=== PATIENT | female | born 1990 | race Two or more races ===

== ENCOUNTER 2024-09-29 15:40 | Emergency (ER) | payer MEDICAID, OTHER ==
[~2024-09-29] VITALS: Ht 157.5 cm; Wt 61.4 kg
--- NOTE | 2024-09-29 15:48 | ED.PDOC ---
HPI Comments 34 y.o female presents to the ED for a chief complaint of substernal chest pain radiating to her back and neck that started earlier today at rest. Patient is currently gestation with BUREAU CHIEF history of . Patient reports pain is intermittent, no active pain at this time but when presented, was described as a squeezing sensation. Patient denies any fever, chills, nausea, vomiting or SOB. Patient mentions 2 day history of a sore throat and sinuses d/t recent sick contact (daughter) at home. Patient has no other medical history. Chief Complaint: Chest Pain Time Seen by MD: 15:41 Reviewed Notes: Nurses Notes, Medications, Allergies Allergies: Coded Allergies: NO KNOWN ALLERGIES (Unverified , 09/29/24) Information Source: Patient Mode of Arrival: Ambulatory Severity: Moderate Timing: Hours Duration: Since onset Location: Substernal Radiation: Back, Neck Quality: Squeezing Onset: At Rest Cardiac Risk Factors: None PE Risk Factors: None History of: None Associated Signs and Symptoms: Back Pain Past Medical History PAST MEDICAL HISTORY: Denies Surgical History: Tonsillectomy 2 Para 1 Family History Family History: Family hx of HTN Social History Smoker: Non-Smoker Alcohol: Denies ETOH Use Drugs: Denies Drug Use Lives In: Home Constitutional: denies: chills, diaphoresis, fatigue, fever, malaise, sweats, weakness, others EENTM: denies: blurred vision, double vision, ear bleeding, ear discharge, ear drainage, ear pain, ear ringing, eye pain, eye redness, hearing loss, mouth pain, mouth swelling, nasal discharge, nose bleeding, nose congestion, nose pain, photophobia, tearing, throat pain, throat swelling, voice changes, others Respiratory: denies: cough, hemoptysis, orthopnea, SOB at rest, shortness of breath, SOB with excertion, stridor, wheezing, others Cardiovascular: reports: chest pain; denies: dizzy spells, diaphoresis, Dyspnea on exertion, edema, irregular heart beat, left arm pain, lightheadedness, palpitations, PND, syncope, others Gastrointestinal: denies: abdomen distended, abdominal pain, blood streaked bowels, constipated, diarrhea, dysphagia, difficulty swallowing, hematemesis, melena, nausea, poor appetite, poor fluid intake, rectal bleeding, rectal pain, vomiting, others Genitourinary: denies: abnormal vagina bleeding, burning, dyspareunia, dysuria, flank pain, frequency, hematuria, incontinence, pain, , vagina discharge, urgency, others Neurological: denies: dizziness, fainting, headache, left sided numbness, left sided weakness, numbness, paresthesia, pre-existing deficit, right sided numbness, right sided weakness, seizure, speech problems, tingling, tremors, weakness, others Musculoskeletal: reports: back pain, neck pain; denies: gout, joint pain, joint swelling, muscle pain, muscle stiffness, others Integumetry: denies: bruises, change in color, change in hair/nails, dryness, laceration, lesions, lumps, rash, wounds, others Allergic/Immunocompromised: denies: Difficulty Healing, Frequent Infections, Hives, Itching, others Hematologic/Lymphatic: denies: anemia, blood clots, easy bleeding, easy bruising, swollen glands, others Endocrine: denies: excessive hunger, excessive sweating, excessive thirst, excessive urination, flushing, intolerance to cold, intolerance to heat, unexplained weight gain, unexplained weight loss, others Psychiatric: denies: anxiety, bipolar disorder, depression, hopeless, panic disorder, schizophrenia, sleepless, suicidal, others All Other Systems: Reviewed and Negative Physical Exam General Appearance: No Apparent Distress HEENT: Normal ENT Inspection, Pharynx Normal, TMs Normal Neck: Full Range of Motion, Non-Tender, Normal, Normal Inspection Respiratory: Chest Non-Tender, Lungs Clear, No Accessory Muscle Use, No Respiratory Distress, Normal Breath Sounds Cardiovascular: No Edema, No JVD, No Murmur, No Gallop, Tachycardia Breast Exam: Deferred Gastrointestinal: No Organomegaly, Non Tender, No Pulsatile Mass, Normal Bowel Sounds, Soft Genitalia: Deferred Pelvic: Deferred Rectal: Deferred Extremities: No calf tenderness, Normal capillary refill, Normal inspection, Normal range of motion, Non-tender, No pedal edema Musculoskeletal : Apperance: Normal Neurologic: Alert, pain medicine physician II-XII nml as Tested, No Motor Deficits, Normal Affect, Normal Mood, No Sensory Deficits Cerebellar Function: Normal Reflexes: Normal Skin: Dry, Normal Color, Warm Lymphatic: No Adenopathy EKG EKG : Pulse Rate (adult): 120 [place]: Normal Cardiac Rhythm: ST Block: None ST: Nonsp Was a procedure done? Was a procedure done?: No CP Differential Dx Differential Diagnosis: Angina Differential Diagnosis: Angina, Chest Wall Pain, Cholelithiasis, Costochondritis, Esophageal reflux/spasm, Gastritis, Pericarditis X-Ray, Labs, Meds, VS Vital Signs Date Time Temp Pulse Resp B/P (MAP) Pulse Ox O2 Delivery O2 Flow Rate FiO2 09/29/24 16:29 125 09/29/24 15:45 102 09/29/24 15:45 99.7 109/75 (86) 98 99.7 Lab Test 09/29/24 15:50 Range/Units White Blood Count 8.9 4.4-10.8 10^3/uL Red Blood Count 4.43 4.0-5.20 10^6/uL Hemoglobin 13.6 12.2-16.2 g/dL Hematocrit 40.4 36.0-46.0 % Mean Corpuscular Volume 91.2 80.0-100.0 fL Mean Corpuscular Hemoglobin 30.6 28.0-32.0 pg Mean Corpuscular Hemoglobin Concent 33.6 32.0-36.0 g/dL Red Cell Distribution Width 13.1 11.8-14.3 % Platelet Count 163 140-450 10^3/uL Mean Platelet Volume 9.1 6.9-10.8 fL Neutrophils (%) (Auto) 73.4 37.0-80.0 % Lymphocytes (%) (Auto) 18.3 10.0-50.0 % Monocytes (%) (Auto) 6.3 0.0-12.0 % Eosinophils (%) (Auto) 1.5 0.0-7.0 % Basophils (%) (Auto) 0.5 0.0-2.0 % Neutrophils # (Auto) 6.5 1.6-8.6 10 ^3/uL Lymphocytes # (Auto) 1.6 0.4-5.4 10 ^3/uL Monocytes # (Auto) 0.6 0-1.3 10 ^3/uL Eosinophils # (Auto) 0.1 0-0.8 10 ^3/uL Basophils # (Auto) 0 0-0.2 10 ^3/uL Nucleated Red Blood Cells 0.0 % Sodium Level Pending Potassium Level Pending Chloride Level Pending Carbon Dioxide Level Pending Anion Gap Pending Blood Urea Nitrogen Pending Creatinine Pending Glomerular Filtration Rate Calc Pending BUN/Creatinine Ratio Pending Serum Glucose Pending Calcium Level Pending Troponin I High Sensitivity Pending The patient's CBC is within normal limits The patient is afebrile We are sending the patient to labor and delivery for further ultrasound to evaluate the baby. At this time, the patient was being discharged and will follow up with the primary care doctor The patient has been cleared from the emergency department's Time of 1ST Reevaluation: 15:48 Reevaluation 1ST: Unchanged Patient Education/Counseling: Diagnosis, Treatment, Prognosis, Need For Follow Up Family Education/Counseling: Diagnosis, Treatment, Prognosis, Need For Follow Up Departure 1 Departure Time of Disposition: 18:21 Impression: Primary Impression: Non-cardiac chest pain Additional Impression: Qualified Codes: Z34.90 - Encounter for supervision of normal , unspecified, unspecified trimester Disposition: 01 HOME / SELF CARE / HOMELESS Condition: Fair Discharged With: Self Critical Care Note Critical Care Time?: No Stability Stability form required: No Heart Score Heart Score: Heart Score Response (Comments) Value History Slightly Suspicious 0 EKG Normal 0 Age <45 0 Risk Factors No known risk factors 0 Troponin N/A 0 Total 0 I personally scribed for FAUZIA SHAH MD ([email or web address]) on 09/29/24 at 15:48. Electronically submitted by Haily Durand ([facility]). FAUZIA SHAH MD Sep 29, 2024 15:48
[2024-09-29 17:43] LABS: Basophils # (auto) 0 10 ^3/uL (0-0.2); Basophils % (auto) 0.5 % (0.0-2.0); Eosinophils # (auto) 0.1 10 ^3/uL (0-0.8); Eosinophils % (auto) 1.5 % (0.0-7.0); Hematocrit 40.4 % (36.0-46.0); Hemoglobin 13.6 g/dL (12.2-16.2); Lymphocytes # (auto) 1.6 10 ^3/uL (0.4-5.4); Lymphocytes % (auto) 18.3 % (10.0-50.0); Mean Corpuscular Hemoglobin 30.6 pg (28.0-32.0); Mean Corpuscular Hgb Conc. 33.6 g/dL (32.0-36.0); Mean Corpuscular Volume 91.2 fL (80.0-100.0); Monocytes # (auto) 0.6 10 ^3/uL (0-1.3); Monocytes % (auto) 6.3 % (0.0-12.0); Neutrophils # (auto) 6.5 10 ^3/uL (1.6-8.6); Neutrophils % (auto) 73.4 % (37.0-80.0); Platelet Count (auto) 163 10^3/uL (140-450); Red Blood Cells 4.43 10^6/uL (4.0-5.20); Red Cell Distribution Width 13.1 % (11.8-14.3); White Blood Cell 8.9 10^3/uL (4.4-10.8)
[2024-09-29 18:06] LABS: Chloride 105 mmol/L (98-107); Sodium 136 mmol/L (136-145)
[2024-09-29 18:07] LABS: Anion Gap 7 (5-15); Calcium 9.6 mg/dL (8.7-10.4); Carbon Dioxide 24 mmol/L (20-31)
[2024-09-29 18:12] LABS: BUN/Creatinine Ratio 15.6 (10.0-20.0); Blood Urea Nitrogen 10 mg/dL (9-23)
[2024-09-29 18:30] VITALS: BP 104/75; PULSE 97; RESP 16; TEMP 99.6; O2SAT 98
[2024-09-29 18:34] LABS: Glucose 110 mg/dL (74-106)
--- NOTE | 2024-10-01 10:38 | ECG ---
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
--- NOTE | 2024-10-01 13:22 | ECG ---
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
== END 2024-09-29 18:30 | disposition home or self-care (01) ==
LOC: ER 15:40
DX: O26.891 Other specified pregnancy related conditions, first trimester (principal); R07.89 Other chest pain; Z90.89 Acquired absence of other organs; Z3A.00 Weeks of gestation of pregnancy not specified
CPT/HCPCS: 36415; 80048; 84484; 85025; 93005

== ENCOUNTER 2024-10-11 10:59 | Observation (INO) | payer MEDICAID ==
[~2024-10-11] VITALS: Ht 157.5 cm; Wt 62.1 kg
--- NOTE | 2024-10-11 12:36 | DVH ---
Procedure: US BIOPHYSICAL PROFILE 10/11/2024 11:23 AM Indication: Low ANDER Comparison: None Technique: Sonogram of gravid uterus utilizing grayscale and color techniques. FINDINGS: Single living intrauterine gestation. Presentation: Cephalic Placenta: Anterior heart rate: 156 bpm ANDER: 7.6 cm, DVP: 3.5 cm Maternal cervix: Not visualized Biophysical Profile: breathing score: 2 movement score: 2 tone: 2 Quantitative ANDER score: 2 Total score: 8/8 IMPRESSION: 1. Single living as above. 2. Biophysical profile score: 8/8.
--- NOTE | 2024-10-12 07:10 | DVHDS2 ---
Physician Discharge Progress N Final Diagnosis: iup at 38 wks w/borderline eva Operations or Procedures: Operations or Procedures nst 38wks,sono Other Interventions Other Interventions refuses induction Condition on Discharge: Good Disposition: Home Discharge Instructions: Diet: Regular Activity: No Restrictions, As Tolerated Medications: na Follow Up Care: Specialist: 2d Discharge Statement: "Patient was advised to return to the ER or call 911 if any headaches, diz ziness, shortness of breath, chest pain, abdominal pain, bleeding, fevers, or worsening of medical condition. Patient was counseled about treatment plan, medications, possible side effects, patientverbalized understanding. All questions were answered to the best of my ability. This discharge took greater then 30 minutes in planning, reviewing documentation, counseling the patient, and discussing with other team members." Visit Coding OBGYN Date of Service: Oct 11, 2024 Billing Provider: LUIS MERCHANT DO HEAD MILLER Common Visit Codes: [id number] INP/OBS CARE(HIGH) HEAD MILLER Procedure Codes: 14440-57- NON-STRESS TEST LUIS MERCHANT DO Oct 12, 2024 07:10
== END 2024-10-11 12:36 | disposition home or self-care (01) ==
LOC: LDRP 10:59
PROVIDERS: ADMIT Obstetrics & Gynecology; ATTEND Obstetrics & Gynecology
DX: O41.93X0 Disorder of amniotic fluid and membranes, unspecified, third trimester, not applicable or unspecified (principal); Z3A.38 38 weeks gestation of pregnancy; Z88.0 Allergy status to penicillin; Z79.899 Other long term (current) drug therapy
CPT/HCPCS: 59025; 76819; 81002; 94760; G0378

== ENCOUNTER 2024-10-13 16:04 | Observation (INO) | payer MEDICAID ==
--- NOTE | 2024-10-13 17:16 | DVH ---
BIOPHYSICAL PROFILE HISTORY: low ANDER Comparison Study: None available at time of dictation. TECHNIQUE: Multiple real-time grayscale sonographic images through the gravid uterus of the fetus wi th duplex Doppler color flow and M-mode spectral analysis FINDINGS: Fetus is in cephalic position. Internal os is shadowed by the head of the fetus. Heart rate is 130 beats per minute. Placenta is anterior with no evidence for placenta previa. Amniotic fluid index is 6.65 cm with the deepest pocket = 3.45 cm. There is a 3-vessel cord. breathing = 2/2. movements = 2/2. tone = 2/2. Amniotic fluid = 2/2. IMPRESSION: 1. Single viable intrauterine in cephalic position with normal biophysical profile of 8/8. Amniotic fluid is low normal for late 3rd trimester
[2024-10-13] MEDS ORDERED: PREN1TAB71 OR (17:55)
--- NOTE | 2024-10-14 14:37 | DVHDS2 ---
Physician Discharge Progress N Final Diagnosis: low eva 38wks Operations or Procedures: Operations or Procedures nst pt refuses induction Condition on Discharge: Good Disposition: Home Discharge Instructions: Diet: Regular Activity: No Restrictions, As Tolerated Medications: na Follow Up Care: Specialist: 1d Discharge Statement: "Patient was advised to return to the ER or call 911 if any headaches, dizziness, shortness of breath, chest pain, abdominal pain, bleeding, fevers, or worsening of medical condition. Patient was counseled about treatment plan, medications, possible side effects, patientverbalized understanding. All questions were answered to the best of my ability. This discharge took greater then 30 minutes in planning, reviewing docume ntation, counseling the patient, and discussing with other team members." Visit Coding OBGYN Date of Service: Oct 13, 2024 Billing Provider: LUIS MERCHANT DO LABORER/GRADE CHECK Common Visit Codes: 93981-[id number] INP/OBS CARE(HIGH) LABORER/GRADE CHECK Procedure Codes: 65548-81- NON-STRESS TEST LUIS MERCHANT DO Oct 14, 2024 14:37
== END 2024-10-13 18:10 | disposition home or self-care (01) ==
LOC: LDRP 16:04 → UNDODISOB 16:46
PROVIDERS: ADMIT Obstetrics & Gynecology; ATTEND Obstetrics & Gynecology
DX: O42.913 Preterm premature rupture of membranes, unspecified as to length of time between rupture and onset of labor, third trimester (principal); Z98.890 Other specified postprocedural states; Z79.899 Other long term (current) drug therapy; Z3A.38 38 weeks gestation of pregnancy
CPT/HCPCS: 76819; 81002; G0378

== ENCOUNTER 2024-10-14 21:49 | Inpatient (IN) | payer MEDICAID ==
[~2024-10-14] VITALS: Ht 157.5 cm; Wt 62.6 kg
[~2024-10-14 21:49] MED LIST: PREN1TAB71 OR
[2024-10-14] MEDS ORDERED: RHO (D) IMMUNE GLOBULIN 300 MCG INJ IM ONE (22:15)
[2024-10-14] MEDS ORDERED: NALBUPHINE HCL 10 MG/1ml INJECTION IV PRN (22:15)
[2024-10-14] MEDS ORDERED: LACT. RINGERS/OXYTOCIN 20UNITS 500 ML IV ONE (22:15)
[2024-10-14] MEDS ORDERED: LIDOCAINE 2%HCL (LOCAL ANESTH.) INJ 20ML MDV IJ PRN (22:15)
[2024-10-14] MEDS ORDERED: miSOPROStol 50 MCG per PRE-CUT 1/2 TAB PO PRN (22:15)
[2024-10-14 22:48] LABS: Basophils # (auto) 0 10 ^3/uL (0-0.2); Basophils % (auto) 0.6 % (0.0-2.0); Eosinophils # (auto) 0.2 10 ^3/uL (0-0.8); Eosinophils % (auto) 2.1 % (0.0-7.0); Hematocrit 39.9 % (36.0-46.0); Hemoglobin 13.5 g/dL (12.2-16.2); Lymphocytes # (auto) 2.2 10 ^3/uL (0.4-5.4); Lymphocytes % (auto) 28.4 % (10.0-50.0); Mean Corpuscular Hgb Conc. 33.7 g/dL (32.0-36.0); Mean Corpuscular Volume 91.9 fL (80.0-100.0); Monocytes # (auto) 0.4 10 ^3/uL (0-1.3); Monocytes % (auto) 5.7 % (0.0-12.0); Neutrophils # (auto) 4.8 10 ^3/uL (1.6-8.6); Neutrophils % (auto) 63.2 % (37.0-80.0); Nucleated Red Blood Cells % 0.1 %; Platelet Count (auto) 179 10^3/uL (140-450); Red Blood Cells 4.34 10^6/uL (4.0-5.20); Red Cell Distribution Width 13.4 % (11.8-14.3); White Blood Cell 7.7 10^3/uL (4.4-10.8)
[2024-10-14 22:59] LABS: INR 0.92 (0.9-1.15); Partial Thromboplastin Time 26.7 SEC (24.5-34.5); Prothrombin Time 9.8 sec (9.3-11.8)
[2024-10-14 23:06] LABS: Amphetamine Screen, Urine Neg (NEGATIVE); Barbiturate Scree,Urine Neg (NEGATIVE); Benzodiazephine Screen, Urine Neg (NEGATIVE); Cannabinoid Screen, Urine Neg (NEGATIVE); Cocaine Screen, Urine Neg (NEGATIVE); Opiate Scree,Urine Neg (NEGATIVE); Phencyclidine Screen, Urine Neg (NEGATIVE)
[2024-10-14 23:07] LABS: Urine Bacteria FEW /hpf (None Seen); Urine Blood Negative /uL (Negative); Urine Clarity Clear (Clear); Urine Color Light-Yellow (Yellow); Urine Protein, UAD Negative (Negative); Urine Specific Gravity 1.013 (1.001-1.035); Urine Squamous Epithelial Cell FEW /hpf (<5); Urine Urobilinogen Normal (Negative); Urine WBC 1 /HPF (0-5); Urine pH 6.5 (5.0-9.0)
[2024-10-14 23:09] LABS: Alanine Aminotransferase 28 U/L (7-40); Albumin 4.1 g/dL (3.2-4.8); Anion Gap 6 (5-15); Aspartate Aminotransferase 36 U/L (13-40); BUN/Creatinine Ratio 11.1 (10.0-20.0); Bilirubin, Total 0.4 mg/dL (0.2-1.0); Calcium 9.3 mg/dL (8.7-10.4); Carbon Dioxide 26 mmol/L (20-31); Glucose 89 mg/dL (74-106); Potassium 3.7 mmol/L (3.5-5.1); Sodium 140 mmol/L (136-145); Total Protein 6.2 g/dL (5.7-8.2)
[2024-10-14 23:15] LABS: Chloride 108 mmol/L (98-107)
[2024-10-14 23:16] LABS: Alkaline Phosphatase 168 U/L (46-116); Blood Urea Nitrogen 7 mg/dL (9-23)
[2024-10-14] MEDS: LACTATED RINGER'S 1,000 ML IV SCH (23:54)
--- NOTE | 2024-10-14 23:54 | DVHHP2 ---
OB CC & HPI Date Date of Admission: Oct 14, 2024 Patient Identification: : 2 Para: 1 EDC: Oct 21, 2024 EGA: 39.0wks Chief Complaints: Reason for admission: induction of labor Indication for induction: other (Low ANDER) Admission Nurse Assessment Rev: Yes History of Present Complaints 34yo IUP@39.0wks presents for IOL for Low ANDER (6.65cm) per Dr. Montes on 10/13/24 Denies UCs/LOF/VB/[place]/vision changes/RUQ pain. Endorses +FM. PNC: Routine PNC at [facility] OB, adequate visits. GTT wnl, dating based on LMP c/w 9wk sono, GBS negative. OB hx: #1: , uncomplicated in 2008. #2: current Past Medical History Cardiac: No pertinent Hx Pulmonary: No pertinent Hx Central Nervous System: No pertinent Hx GI: No pertinent Hx Hemotology/Oncology: No pertinent Hx Hepatobiliary: No pertinent Hx Psychiatric: No pertinent Hx Musculoskeletal: No pertinent Hx Rheumotologic: No pertinent Hx Infectious Disease: No peritnent Hx ENT: No pertinent Hx Renal/: No pertinent Hx Endocrine: No pertinent Hx Dermatology: No pertinent Hx Past Surgical History: Tonsillectomy (2004), Other (Breat Augmentation in 2007) OB History OB History Care: Good Care Ultrasounds: Normal mid trimester US Obstetrical Complications: Other (Low ANDER) Medical Complications: None Allergies: Coded Allergies: Amoxicillin (Verified Allergy, Intermediate, Hives, 10/14/24) Cefdinir (Verified Allergy, Intermediate, Hives, 10/14/24) Sodium Benzoate (Verified Allergy, Intermediate, Hives, 10/14/24) Home Meds Reported Medications Vit W/ Ferrous Fumara (PNV PLUS MULTIVI) Plus Tab, 1 OR, TAB 10/13/24 Current Medications Current Medications Medications (Trade) Dose Ordered Sig/Amparo Route PRN Reason Start Time Stop Time Status Last Admin Lactated Ringer's 1,000 ml @ 125 mls/hr Q8H IV 10/14/24 22:15 Nalbuphine HCl (Nubain) 10 mg Q4HP PRN IV MODERATE PAIN (4-6 PAIN SCALE) 10/14/24 22:15 Witch Marychuy (Tucks) 1 pad PRN PRN TOP PERINEAL AREA DISCOMFORT 10/14/24 22:15 Sodium Lauryl Sulfate (Phisoderm) 240 ml PRN PRN TOP PERINEAL AREA DISCOMFORT 10/14/24 22:15 Benzocaine (Dermoplast) 1 applic PRN PRN TOP PERINEAL AREA DISCOMFORT 10/14/24 22:15 Misoprostol (Cytotec) 50 mcg Q4HPRN PRN PO CERVICAL RIPENING 10/14/24 22:15 Lidocaine HCl (Xylocaine) 20 ml ONCE PRN IJ PERINEAL AREA DISCOMFORT 10/14/24 22:15 Family & Social History Family/Social History Past Family/Social History: Maternal Grandfather prostate cancer Blood Type: O- (Rhogam given on 08/06/24) Rubella: immune RPR/VDRL: Negative GBS Status: Negative HBsAG: Negative Review of Systems Constitutional: No symptom reported Ears, Nose, & Throat: No symptom reported Eyes: No symptom reported Pulmonary/Respiratory: No symptom reported Cardiovascular: No symptom reported Gastrointestinal: No symptom reported Genitourinary: No symptom reported Musculoskeletal: No symptom reported Skin: No symptom reported Psychiatric: No symptom reported Endocrine: No symptom reported Hemotologic/Lymphatic: No symptom reported OB Admission Exam Physical Exam Vitals: VSS, see chart EFW 7lbs 4oz, vertex at Dr. Vásquez's office on 10/09/24 HEENT: TMs Normal, Fontanelles Normal, Nasal Mucosa Normal, Eyes non-injected, Oropharynx Normal, PERRLA, Moist Membranes, EOMI Heart: Rhythm Normal Lungs: Clear Abdomen: Gravid Extremities: Normal Reflexes: Normal Cervical Dilatation: 1cm Effacement: 50% Station: -3 Membranes: Intact Accelerations: Accelerations Present (FHR 165) Decelerations: Variable Decelerations Morgue Attendant Variability: Average (6-25) Contractions on Admission: None OB Plan Plan Admitting Diagnosis: 34yo IUP@39.0wks Induction of Labor for Low ANDER (6.65cm) per Dr. Montes Category II EFM Intact Membranes GBS negative Plan: Induction (cervical ripening balloon) Other Plan: Admit to L&D Informed consent obtained IV fluid bolus given for tachycardia Discussed risks, benefits, alternatives of IOL for Low ANDER with pt. Discussed cervical ripening balloon and cytotec, pt consents to CRB and declines cytotec. monitoring per order Routine labs ordered Pain mgmt PRN Frequent position changes in and out of bed encouraged Limit SVE unless necessary Intrauterine resuscitation PRN Anticipate CNM will consult with Dr. Montes PRN Visit Coding OBGYN Date of Service: Oct 14, 2024 Billing Provider: TERE BAXTER CNM OCCUPATIONAL HEALTH AND SAFETY ADVISER Common Visit Codes: [id number] INP/OBS CARE (HIGH) JARON MEDEIROS STUDENTMDW Oct 14, 2024 23:54
[2024-10-15] MEDS: WITCH HAZEL-GLYCERIN PAD TOP PRN (04:35)
[2024-10-15] MEDS: DERMOPLAST 60ML BOTTLE TOP PRN (04:35)
[2024-10-15] MEDS: PHISODERM TOP SOLN 240ML BTL TOP PRN (04:35)
--- NOTE | 2024-10-15 07:59 | DVHPN2 ---
Chief Complaints Patient reports: No new complaints Nursing reports: No new complaints Objective Medications Current Medications Medications (Trade) Dose Ordered Sig/Amparo Route PRN Reason Start Time Stop Time Status Last Admin Benzocaine (Dermoplast) 1 applic PRN PRN TOP PERINEAL AREA DISCOMFORT 10/14/24 22:15 10/15/24 04:35 Lactated Ringer's 1,000 ml @ 125 mls/hr Q8H IV 10/14/24 22:15 10/14/24 23:54 Lidocaine HCl (Xylocaine) 20 ml ONCE PRN IJ PERINEAL AREA DISCOMFORT 10/14/24 22:15 Misoprostol (Cytotec) 50 mcg Q4HPRN PRN PO CERVICAL RIPENING 10/14/24 22:15 Nalbuphine HCl (Nubain) 10 mg Q4HP PRN IV MODERATE PAIN (4-6 PAIN SCALE) 10/14/24 22:15 Sodium Lauryl Sulfate (Phisoderm) 240 ml PRN PRN TOP PERINEAL AREA DISCOMFORT 10/14/24 22:15 10/15/24 04:35 Witch Marychuy (Tucks) 1 pad PRN PRN TOP PERINEAL AREA DISCOMFORT 10/14/24 22:15 10/15/24 04:35 Others ve-cooks ballon in Studies Laboratory Tests 10/14/24 22:30 Test 10/14/24 22:30 Range/Units Serum Glucose 89 74-106 mg/dL Ass/Plan Assessment iol ,ama Plan pt is refusing pitocin and wants to cont with all natural Visit Coding OBGYN Date of Service: Oct 15, 2024 Billing Provider: LUIS MERCHANT DO LATEX SPOOLER Common Visit Codes: [id number] INP/OBS CARE (HIGH) LATEX SPOOLER Procedure Codes: 40911-14- NON-STRESS TEST LUIS MERCHANT DO Oct 15, 2024 07:59
--- NOTE | 2024-10-15 08:42 | DVHPN2 ---
Chief Complaints Patient reports: No new complaints Nursing reports: No new complaints Objective Medications Current Medications Medications (Trade) Dose Ordered Sig/Amparo Route PRN Reason Start Time Stop Time Status Last Admin Benzocaine (Dermoplast) 1 applic PRN PRN TOP PERINEAL AREA DISCOMFORT 10/14/24 22:15 10/15/24 04:35 Lactated Ringer's 1,000 ml @ 125 mls/hr Q8H IV 10/14/24 22:15 10/14/24 23:54 Lidocaine HCl (Xylocaine) 20 ml ONCE PRN IJ PERINEAL AREA DISCOMFORT 10/14/24 22:15 Misoprostol (Cytotec) 50 mcg Q4HPRN PRN PO CERVICAL RIPENING 10/14/24 22:15 Nalbuphine HCl (Nubain) 10 mg Q4HP PRN IV MODERATE PAIN (4-6 PAIN SCALE) 10/14/24 22:15 Sodium Lauryl Sulfate (Phisoderm) 240 ml PRN PRN TOP PERINEAL AREA DISCOMFORT 10/14/24 22:15 10/15/24 04:35 Witch Marychuy (Tucks) 1 pad PRN PRN TOP PERINEAL AREA DISCOMFORT 10/14/24 22:15 10/15/24 04:35 Others cooks baloon out cx is 4cm Studies Laboratory Tests 10/14/24 22:30 Test 10/14/24 22:30 Range/Units Serum Glucose 89 74-106 mg/dL Ass/Plan Assessment iol ,ama Plan pt refuses pitocin Visit Coding OBGYN Date of Service: Oct 15, 2024 Billing Provider: LUIS MERCHANT DO MARBLE MECHANIC HELPER Common Visit Codes: [id number] INP/OBS CARE (HIGH) MARBLE MECHANIC HELPER Procedure Codes: 35975-51- NON-STRESS TEST LUIS MERCHANT DO Oct 15, 2024 08:42
[2024-10-15] MEDS ORDERED: LACT. RINGERS/OXYTOCIN 20UNITS 500 ML IV ONE (15:45)
--- NOTE | 2024-10-15 15:55 | DVHPN2 ---
CNM Labor Progress Note Date and Time Seen Date Seen: Oct 15, 2024 Time Seen: 15:10 Subjective Patient reports: No new complaints Subjective Comment "I feel more pressure than anything but no pain." Pt wants to start pitocin after epidural placement. Objective Vital Signs VSS, see chart Monitoring Method Monitoring Method: External Heart Rate Heart Rate Baseline: 150 Heart Rate Variability: Moderate Presence of FHR Accelerations: Yes Presence of FHR Decelerations: No Changes in Trends of Patterns: No Are all 5 Components of the FH: Yes Contractions Contractions Frequency: Other (q5min) Duration of Contraction: 60 Contractions Intensity: Mild Contractions Resting Tone: Relaxed Membranes Membranes: Intact Vaginal Exam Vag Exam Deferred: No (4.5) Vaginal Exam Effacement: 60 Vaginal Exam Station: -1 Vaginal Exam Presentation: VTX Vaginal Exam Show: Small Medications Medications - Pitocin: No (Pitocin per protocol after epidural) Medication - Epidural: No (Anesthesia team called for placement) Lab Results Lab Results Current Medications Medications (Trade) Dose Ordered Sig/Amparo Start Time Stop Time Status Last Admin Dose Admin Lactated Ringer's 1,000 ml @ 125 mls/hr Q8H 10/14/24 22:15 10/14/24 23:54 125 MLS/HR Nalbuphine HCl (Nubain) 10 mg Q4HP PRN 10/14/24 22:15 Witch Marychuy (Tucks) 1 pad PRN PRN 10/14/24 22:15 10/15/24 04:35 1 PAD Sodium Lauryl Sulfate (Phisoderm) 240 ml PRN PRN 10/14/24 22:15 10/15/24 04:35 240 ML Benzocaine (Dermoplast) 1 applic PRN PRN 10/14/24 22:15 10/15/24 04:35 1 APPLIC Rho Immune Globulin (Rhogam) 300 mcg ONCE ONCE 10/14/24 22:15 10/14/24 22:43 DC Misoprostol (Cytotec) 50 mcg Q4HPRN PRN 10/14/24 22:15 Lidocaine HCl (Xylocaine) 20 ml ONCE PRN 10/14/24 22:15 Oxytocin 500 ml @ 999 mls/hr Q31M ONCE 10/14/24 22:15 10/14/24 22:45 DC Oxytocin 500 ml @ 125 mls/hr Q4H ONCE 10/14/24 22:45 10/15/24 02:44 DC Ephedrine Sulfate (ePHEDrine SULFATE) 10 mg PRN ONCE 10/15/24 15:15 10/15/24 15:46 DC Oxytocin 500 ml @ 999 mls/hr Q31M ONCE 10/15/24 15:15 10/15/24 15:46 DC Oxytocin 500 ml @ 125 mls/hr Q4H ONCE 10/15/24 15:45 10/15/24 19:44 Oxytocin 1,000 ml @ 6 ml/hr Q24H 10/15/24 15:15 Laboratory Tests Test 10/14/24 22:30 10/14/24 22:28 Range/Units White Blood Count 7.7 4.4-10.8 10^3/uL Red Blood Count 4.34 4.0-5.20 10^6/uL Hemoglobin 13.5 12.2-16.2 g/dL Hematocrit 39.9 36.0-46.0 % Mean Corpuscular Volume 91.9 80.0-100.0 fL Mean Corpuscular Hemoglobin 31.0 28.0-32.0 pg Mean Corpuscular Hemoglobin Concent 33.7 32.0-36.0 g/dL Red Cell Distribution Width 13.4 11.8-14.3 % Platelet Count 179 140-450 10^3/uL Mean Platelet Volume 8.6 6.9-10.8 fL Neutrophils (%) (Auto) 63.2 37.0-80.0 % Lymphocytes (%) (Auto) 28.4 10.0-50.0 % Monocytes (%) (Auto) 5.7 0.0-12.0 % Eosinophils (%) (Auto) 2.1 0.0-7.0 % Basophils (%) (Auto) 0.6 0.0-2.0 % Neutrophils # (Auto) 4.8 1.6-8.6 10 ^3/uL Lymphocytes # (Auto) 2.2 0.4-5.4 10 ^3/uL Monocytes # (Auto) 0.4 0-1.3 10 ^3/uL Eosinophils # (Auto) 0.2 0-0.8 10 ^3/uL Basophils # (Auto) 0 0-0.2 10 ^3/uL Nucleated Red Blood Cells 0.1 % Prothrombin Time 9.8 9.3-11.8 sec Prothrombin Time INR 0.92 0.9-1.15 Activated Partial Thromboplast Time 26.7 24.5-34.5 SEC Sodium Level 140 136-145 mmol/L Potassium Level 3.7 3.5-5.1 mmol/L Chloride Level 108 H 98-107 mmol/L Carbon Dioxide Level 26 20-31 mmol/L Anion Gap 6 5-15 Blood Urea Nitrogen 7 L 9-23 mg/dL Creatinine 0.63 0.550-1.02 mg/dL Glomerular Filtration Rate Calc 118 >90 mL/min BUN/Creatinine Ratio 11.1 10.0-20.0 Serum Glucose 89 74-106 mg/dL Calcium Level 9.3 8.7-10.4 mg/dL Total Bilirubin 0.4 0.2-1.0 mg/dL Aspartate Amino Transferase (AST) 36 13-40 U/L Alanine Aminotransferase (ALT) 28 7-40 U/L Alkaline Phosphatase 168 H 46-116 U/L Total Protein 6.2 5.7-8.2 g/dL Albumin 4.1 3.2-4.8 g/dL Treponema pallidum Antibody Non-reactive Negative Hepatitis C Antibody Negative Negative Rubella IgG Antibody Pending Urine Color Light-yellow Yellow Urine Clarity Clear Clear Urine pH 6.5 5.0-9.0 Urine Specific [place] 1.013 1.001-1.035 Urine Protein Negative Negative Urine Ketones Negative Negative Urine Blood Negative Negative /uL Urine Nitrite Negative Negative Urine Bilirubin Negative Negative Urine Urobilinogen Normal Negative mg/dL Urine Leukocyte Esterase Negative Negative /uL Urine RBC <1 0 - 4 /hpf Urine Microscopic WBC 1 0-5 /HPF Urine Squamous Epithelial Cells Few <5 /hpf Urine Bacteria Few H None Seen /hpf Urine Glucose Normal Normal mg/dL Urine Opiates Screen Neg NEGATIVE Urine Fentanyl Screen Neg NEGATIVE Urine Barbiturates Screen Neg NEGATIVE Urine Phencyclidine Screen Neg NEGATIVE Urine Amphetamines Screen Neg NEGATIVE Urine Benzodiazepines Screen Neg NEGATIVE Urine Cocaine Screen Neg NEGATIVE Urine Cannabinoids Screen Neg NEGATIVE Assessment Assessment 34 yo IUP @ 39.1 weeks IOL for oligohydramnios Category I EFM tracing Intact Membranes GBS negative Plan Plan Continue induction with Oxytocin per protocol Pain MGMT with epidural Frequent position changes in bed encouraged Limit SVE unless necessary Intrauterine resuscitation PRN Anticipate CNM will consult with Dr. Montes PRN Plan discussed with: Patient, Spouse Visit Coding OBGYN Date of Service: Oct 15, 2024 Billing Provider: TERE BAXTER CNM HISTORY FACULTY MEMBER Common Visit Codes: [id number] INP/OBS CARE(HIGH) BRUCE DE PAZ STDCarson MDWF Oct 15, 2024 15:55
[2024-10-15] MEDS: LACT. RINGERS/OXYTOCIN 20UNITS 1,000 ML IV SCH (17:00)
--- NOTE | 2024-10-16 00:04 | DVHPN2 ---
CNM Labor Progress Note Date and Time Seen Date Seen: Oct 15, 2024 Time Seen: 21:15 Subjective Patient reports: No new complaints Objective Vital Signs VSS, see chart Monitoring Method Monitoring Method: External Heart Rate Heart Rate Baseline: 140 Heart Rate Variability: Moderate Presence of FHR Accelerations: Yes Presence of FHR Decelerations: No Changes in Trends of Patterns: Yes Are all 5 Components of the FH: Yes Contractions Contractions Frequency: Other (q1.5-3.5 min) Duration of Contraction: 100 Contractions Intensity: Moderate Contractions Resting Tone: Relaxed Membranes Membranes: Intact Vaginal Exam Vag Exam Deferred: Yes (last SVE by RN: /) Medications Medications - Pitocin: Yes (10mu) Medication - Epidural: Yes Medication - Other s/p cooks CRB balloon Lab Results Lab Results Current Medications Medications (Trade) Dose Ordered Sig/Amparo Start Time Stop Time Status Last Admin Dose Admin Lactated Ringer's 1,000 ml @ 125 mls/hr Q8H 10/14/24 22:15 10/14/24 23:54 125 MLS/HR Nalbuphine HCl (Nubain) 10 mg Q4HP PRN 10/14/24 22:15 Witch Marychuy (Tucks) 1 pad PRN PRN 10/14/24 22:15 10/15/24 04:35 1 PAD Sodium Lauryl Sulfate (Phisoderm) 240 ml PRN PRN 10/14/24 22:15 10/15/24 04:35 240 ML Benzocaine (Dermoplast) 1 applic PRN PRN 10/14/24 22:15 10/15/24 04:35 1 APPLIC Rho Immune Globulin (Rhogam) 300 mcg ONCE ONCE 10/14/24 22:15 10/14/24 22:43 DC Misoprostol (Cytotec) 50 mcg Q4HPRN PRN 10/14/24 22:15 Lidocaine HCl (Xylocaine) 20 ml ONCE PRN 10/14/24 22:15 Oxytocin 500 ml @ 999 mls/hr Q31M ONCE 10/14/24 22:15 10/14/24 22:45 DC Oxytocin 500 ml @ 125 mls/hr Q4H ONCE 10/14/24 22:45 10/15/24 02:44 DC Ephedrine Sulfate (ePHEDrine SULFATE) 10 mg PRN ONCE 10/15/24 15:15 10/15/24 15:46 DC Oxytocin 500 ml @ 999 mls/hr Q31M ONCE 10/15/24 15:15 10/15/24 15:46 DC Oxytocin 500 ml @ 125 mls/hr Q4H ONCE 10/15/24 15:45 10/15/24 19:44 DC Oxytocin 1,000 ml @ 6 ml/hr Q24H 10/15/24 15:15 10/15/24 17:00 6 ML/HR Laboratory Tests Test 10/14/24 22:30 10/14/24 22:28 Range/Units White Blood Count 7.7 4.4-10.8 10^3/uL Red Blood Count 4.34 4.0-5.20 10^6/uL Hemoglobin 13.5 12.2-16.2 g/dL Hematocrit 39.9 36.0-46.0 % Mean Corpuscular Volume 91.9 80.0-100.0 fL Mean Corpuscular Hemoglobin 31.0 28.0-32.0 pg Mean Corpuscular Hemoglobin Concent 33.7 32.0-36.0 g/dL Red Cell Distribution Width 13.4 11.8-14.3 % Platelet Count 179 140-450 10^3/uL Mean Platelet Volume 8.6 6.9-10.8 fL Neutrophils (%) (Auto) 63.2 37.0-80.0 % Lymphocytes (%) (Auto) 28.4 10.0-50.0 % Monocytes (%) (Auto) 5.7 0.0-12.0 % Eosinophils (%) (Auto) 2.1 0.0-7.0 % Basophils (%) (Auto) 0.6 0.0-2.0 % Neutrophils # (Auto) 4.8 1.6-8.6 10 ^3/uL Lymphocytes # (Auto) 2.2 0.4-5.4 10 ^3/uL Monocytes # (Auto) 0.4 0-1.3 10 ^3/uL Eosinophils # (Auto) 0.2 0-0.8 10 ^3/uL Basophils # (Auto) 0 0-0.2 10 ^3/uL Nucleated Red Blood Cells 0.1 % Prothrombin Time 9.8 9.3-11.8 sec Prothrombin Time INR 0.92 0.9-1.15 Activated Partial Thromboplast Time 26.7 24.5-34.5 SEC Sodium Level 140 136-145 mmol/L Potassium Level 3.7 3.5-5.1 mmol/L Chloride Level 108 H 98-107 mmol/L Carbon Dioxide Level 26 20-31 mmol/L Anion Gap 6 5-15 Blood Urea Nitrogen 7 L 9-23 mg/dL Creatinine 0.63 0.550-1.02 mg/dL Glomerular Filtration Rate Calc 118 >90 mL/min BUN/Creatinine Ratio 11.1 10.0-20.0 Serum Glucose 89 74-106 mg/dL Calcium Level 9.3 8.7-10.4 mg/dL Total Bilirubin 0.4 0.2-1.0 mg/dL Aspartate Amino Transferase (AST) 36 13-40 U/L Alanine Aminotransferase (ALT) 28 7-40 U/L Alkaline Phosphatase 168 H 46-116 U/L Total Protein 6.2 5.7-8.2 g/dL Albumin 4.1 3.2-4.8 g/dL Treponema pallidum Antibody Non-reactive Negative Hepatitis C Antibody Negative Negative Rubella IgG Antibody Pending Urine Color Light-yellow Yellow Urine Clarity Clear Clear Urine pH 6.5 5.0-9.0 Urine Specific [place] 1.013 1.001-1.035 Urine Protein Negative Negative Urine Ketones Negative Negative Urine Blood Negative Negative /uL Urine Nitrite Negative Negative Urine Bilirubin Negative Negative Urine Urobilinogen Normal Negative mg/dL Urine Leukocyte Esterase Negative Negative /uL Urine RBC <1 0 - 4 /hpf Urine Microscopic WBC 1 0-5 /HPF Urine Squamous Epithelial Cells Few <5 /hpf Urine Bacteria Few H None Seen /hpf Urine Glucose Normal Normal mg/dL Urine Opiates Screen Neg NEGATIVE Urine Fentanyl Screen Neg NEGATIVE Urine Barbiturates Screen Neg NEGATIVE Urine Phencyclidine Screen Neg NEGATIVE Urine Amphetamines Screen Neg NEGATIVE Urine Benzodiazepines Screen Neg NEGATIVE Urine Cocaine Screen Neg NEGATIVE Urine Cannabinoids Screen Neg NEGATIVE Assessment Assessment 34 yo IUP @ 39.1 weeks IOL for oligohydramnios Category I EFM tracing Intact Membranes GBS negative Plan Plan Continue induction with Oxytocin per protocol Pain MGMT with epidural Frequent position changes in bed encouraged Limit SVE unless necessary Intrauterine resuscitation PRN Anticipate CNM will consult with Dr. Montes PRN Plan discussed with: Patient, Spouse Visit Coding OBGYN Date of Service: Oct 16, 2024 Billing Provider: TERE BAXTER CNM INSTRUCTIONAL AIDE Common Visit Codes: [id number] INP/OBS CARE(HIGH) TERE BAXTER CNM Oct 16, 2024 00:04
[2024-10-16] MEDS: ePHEDrine SULFATE 50 MG/ML AMP IV ONE (01:36)
[2024-10-16] MEDS: ePHEDrine SULFATE 50 MG/ML AMP IV PRN (02:51)
[2024-10-16] MEDS ORDERED: ROPIVACAINE HCL 200 ML ONE (04:36)
[2024-10-16] MEDS: ROPIVACAINE HCL 200 ML ONE (04:41)
--- NOTE | 2024-10-16 04:48 | DVHPN2 ---
CNM Labor Progress Note Date and Time Seen Date Seen: Oct 16, 2024 Time Seen: 04:20 Subjective Patient reports: No new complaints Subjective Comment Pt reports feeling comfortable with epidural Objective Vital Signs VSS, see chart Monitoring Method Monitoring Method: External Heart Rate Heart Rate Baseline: 145 Heart Rate Variability: Moderate Presence of FHR Accelerations: Yes Presence of FHR Decelerations: Yes Heart Rate Type of Decel: Early Deceleraions Changes in Trends of Patterns: No Are all 5 Components of the FH: Yes Contractions Contractions Frequency: Other (q2-3min) Duration of Contraction: 70 Contractions Intensity: Moderate Contractions Resting Tone: Relaxed Membranes Membranes: Ruptured Amniotic Fluid Color: Clear Vaginal Exam Vag Exam Deferred: Yes (last VE by RN / @ [id number]) Vaginal Exam Show: Small Medications Medications - Pitocin: Yes (16 MUs) Medication - Epidural: Yes Lab Results Lab Results Current Medications Medications (Trade) Dose Ordered Sig/Amparo Start Time Stop Time Status Last Admin Dose Admin Lactated Ringer's 1,000 ml @ 125 mls/hr Q8H 10/14/24 22:15 10/16/24 01:36 125 MLS/HR Nalbuphine HCl (Nubain) 10 mg Q4HP PRN 10/14/24 22:15 Witch Marychuy (Tucks) 1 pad PRN PRN 10/14/24 22:15 10/15/24 04:35 1 PAD Sodium Lauryl Sulfate (Phisoderm) 240 ml PRN PRN 10/14/24 22:15 10/15/24 04:35 240 ML Benzocaine (Dermoplast) 1 applic PRN PRN 10/14/24 22:15 10/15/24 04:35 1 APPLIC Rho Immune Globulin (Rhogam) 300 mcg ONCE ONCE 10/14/24 22:15 10/14/24 22:43 DC Misoprostol (Cytotec) 50 mcg Q4HPRN PRN 10/14/24 22:15 Lidocaine HCl (Xylocaine) 20 ml ONCE PRN 10/14/24 22:15 Oxytocin 500 ml @ 999 mls/hr Q31M ONCE 10/14/24 22:15 10/14/24 22:45 DC Oxytocin 500 ml @ 125 mls/hr Q4H ONCE 10/14/24 22:45 10/15/24 02:44 DC Ephedrine Sulfate (ePHEDrine SULFATE) 10 mg PRN ONCE 10/15/24 15:15 10/15/24 15:46 DC 10/16/24 01:36 10 MG Oxytocin 500 ml @ 999 mls/hr Q31M ONCE 10/15/24 15:15 10/15/24 15:46 DC Oxytocin 500 ml @ 125 mls/hr Q4H ONCE 10/15/24 15:45 10/15/24 19:44 DC Oxytocin 1,000 ml @ 6 ml/hr Q24H 10/15/24 15:15 10/15/24 17:00 6 ML/HR Ephedrine Sulfate (ePHEDrine SULFATE) 10 mg PRN PRN 10/16/24 02:00 10/16/24 02:52 10 MG Laboratory Tests Test 10/14/24 22:30 10/14/24 22:28 Range/Units White Blood Count 7.7 4.4-10.8 10^3/uL Red Blood Count 4.34 4.0-5.20 10^6/uL Hemoglobin 13.5 12.2-16.2 g/dL Hematocrit 39.9 36.0-46.0 % Mean Corpuscular Volume 91.9 80.0-100.0 fL Mean Corpuscular Hemoglobin 31.0 28.0-32.0 pg Mean Corpuscular Hemoglobin Concent 33.7 32.0-36.0 g/dL Red Cell Distribution Width 13.4 11.8-14.3 % Platelet Count 179 140-450 10^3/uL Mean Platelet Volume 8.6 6.9-10.8 fL Neutrophils (%) (Auto) 63.2 37.0-80.0 % Lymphocytes (%) (Auto) 28.4 10.0-50.0 % Monocytes (%) (Auto) 5.7 0.0-12.0 % Eosinophils (%) (Auto) 2.1 0.0-7.0 % Basophils (%) (Auto) 0.6 0.0-2.0 % Neutrophils # (Auto) 4.8 1.6-8.6 10 ^3/uL Lymphocytes # (Auto) 2.2 0.4-5.4 10 ^3/uL Monocytes # (Auto) 0.4 0-1.3 10 ^3/uL Eosinophils # (Auto) 0.2 0-0.8 10 ^3/uL Basophils # (Auto) 0 0-0.2 10 ^3/uL Nucleated Red Blood Cells 0.1 % Prothrombin Time 9.8 9.3-11.8 sec Prothrombin Time INR 0.92 0.9-1.15 Activated Partial Thromboplast Time 26.7 24.5-34.5 SEC Sodium Level 140 136-145 mmol/L Potassium Level 3.7 3.5-5.1 mmol/L Chloride Level 108 H 98-107 mmol/L Carbon Dioxide Level 26 20-31 mmol/L Anion Gap 6 5-15 Blood Urea Nitrogen 7 L 9-23 mg/dL Creatinine 0.63 0.550-1.02 mg/dL Glomerular Filtration Rate Calc 118 >90 mL/min BUN/Creatinine Ratio 11.1 10.0-20.0 Serum Glucose 89 74-106 mg/dL Calcium Level 9.3 8.7-10.4 mg/dL Total Bilirubin 0.4 0.2-1.0 mg/dL Aspartate Amino Transferase (AST) 36 13-40 U/L Alanine Aminotransferase (ALT) 28 7-40 U/L Alkaline Phosphatase 168 H 46-116 U/L Total Protein 6.2 5.7-8.2 g/dL Albumin 4.1 3.2-4.8 g/dL Treponema pallidum Antibody Non-reactive Negative Hepatitis C Antibody Negative Negative Rubella IgG Antibody Pending Urine Color Light-yellow Yellow Urine Clarity Clear Clear Urine pH 6.5 5.0-9.0 Urine Specific [place] 1.013 1.001-1.035 Urine Protein Negative Negative Urine Ketones Negative Negative Urine Blood Negative Negative /uL Urine Nitrite Negative Negative Urine Bilirubin Negative Negative Urine Urobilinogen Normal Negative mg/dL Urine Leukocyte Esterase Negative Negative /uL Urine RBC <1 0 - 4 /hpf Urine Microscopic WBC 1 0-5 /HPF Urine Squamous Epithelial Cells Few <5 /hpf Urine Bacteria Few H None Seen /hpf Urine Glucose Normal Normal mg/dL Urine Opiates Screen Neg NEGATIVE Urine Fentanyl Screen Neg NEGATIVE Urine Barbiturates Screen Neg NEGATIVE Urine Phencyclidine Screen Neg NEGATIVE Urine Amphetamines Screen Neg NEGATIVE Urine Benzodiazepines Screen Neg NEGATIVE Urine Cocaine Screen Neg NEGATIVE Urine Cannabinoids Screen Neg NEGATIVE Assessment Assessment 34 yo IUP @ 39.2 weeks IOL for oligohydramnios Category I EFM tracing SROM GBS negative Plan Plan Continue induction with Oxytocin per protocol Pain MGMT with epidural Frequent position changes in bed encouraged Limit SVE unless necessary Intrauterine resuscitation PRN Anticipate CNM will consult with Dr. Montes PRDm Plan discussed with: Patient, Spouse Plan Plan Continue induction with Oxytocin per protocol Pain MGMT with epidural Frequent position changes in bed encouraged Limit SVE unless necessary Intrauterine resuscitation PRN Anticipate CNM will consult with Dr. Montes PRDm Plan discussed with: Patient, Spouse Visit Coding OBGYN Date of Service: Oct 16, 2024 Billing Provider: TERE BAXTER CNM INFECTION CONTROL MANAGER Common Visit Codes: [id number] INP/OBS CARE(HIGH) BRUCE DE PAZ MDWF Oct 16, 2024 04:48
[2024-10-16] MEDS ORDERED: METHYLERGONOVINE MALEATE 0.2 MG/ML AMP IM PRN (06:30)
[2024-10-16] MEDS ORDERED: CARBOPROST TROMETHAMINE 250 MCG/1ML VIAL IM ONE (06:30)
[2024-10-16] MEDS ORDERED: ONDANSETRON HCL 4 MG/2 ML VIAL IV PRN (06:30)
[2024-10-16] MEDS ORDERED: IBUPROFEN 600 MG TAB PO PRN (07:45)
[2024-10-16] MEDS ORDERED: IBUPROFEN 800 MG TAB PO ONE (07:45)
[2024-10-16] MEDS ORDERED: ACETAMINOPHEN 325 MG TAB PO PRN (07:45)
[2024-10-16 08:07] LABS: Rubella Antibodies, IgG <0.90 index (Immune >0.99)
[2024-10-16] MEDS: LACT. RINGERS/OXYTOCIN 20UNITS 500 ML IV ONE ×2 (08:15→08:16)
--- NOTE | 2024-10-16 09:06 | LDN2 ---
Labor and Delivery Note Date 10/16/24 Age 34 2 Para 2 AB n/a EDC 10/21/2024 EGA 39.2 weeks Diagnosis IOL for oligohydramnios then Vaginal Delivery: VTX Vacuum Assisted: No Placenta: Spontaneous Sex: Female Weight pending Apgars 8/9 Nuchal Cord Transected: No Amniotic Fluid: Clear Anesthesia epidural Episiotomy: No Extension: No Repaired with Perineal abrasion, did not require repair, hemostatic EBL QBL: 400 mL Labs Blood Bank 10/14/24 22:30: Blood Type O NEGATIVE Complications n/a Conditions Stable Neck Cutter Dr. Key Comments/Significant Med Elvis At 0719 this 34yo now delivered a viable Female infant by w/ APGARS 8/9. SILVA with compound presentation. Infant placed skin to skin on pts chest. Cord clamped and cut after pulsation ceased. Cord blood sent. Intact 3-vessel cord placenta delivered spontaneously, [place] with marginal cord insertion. Pitocin IV bolus started. Placenta sent to pathology. Patient had epidural anesthesia. Cervix/vagina inspected (intact) and perineal abrasion present, did not require repair, hemostatic. Fundus at U, firm, midline, and light lochia. QBL 400ml. VSS. Count correct x2. Patient to care and baby to couplet care, both stable. Visit Coding OBGYN Date of Service: Oct 16, 2024 Billing Provider: TERE BAXTER CNM ONCOLOGY RN Common Visit Codes: PROCEDURE ONLY ONCOLOGY RN Procedure Codes: [id number] DEL INCLUDING BRUCE DE PAZ MDWF Oct 16, 2024 09:06
[2024-10-16] MEDS ORDERED: DOCU-265 PO (09:11)
[2024-10-16] MEDS ORDERED: IBU600T PO (09:11)
[2024-10-16] MEDS ORDERED: PREN1TAB71 PO (09:11)
[2024-10-16] MEDS ORDERED: DIPHENOXYLATE W/ATROPINE 2.5 MG TAB PO SCH (10:00)
[2024-10-16 10:23] VITALS: RESP 18
[2024-10-16 11:00] VITALS: BP 110/68; PULSE 85; RESP 17; TEMP 99.4; O2SAT 98
[2024-10-16 15:00] VITALS: BP 104/75; PULSE 102; RESP 17; TEMP 98; O2SAT 96
[2024-10-16 18:30] VITALS: BP 111/65; PULSE 87; RESP 16; TEMP 97.7; O2SAT 98
[2024-10-16] MEDS: DOCUSATE SOD 100 MG CAP PO SCH (22:00)
[2024-10-16 23:10] VITALS: BP 107/72; PULSE 79; RESP 16; TEMP 98; O2SAT 98
[2024-10-17 03:30] VITALS: BP 105/73; PULSE 88; RESP 16; TEMP 98.7; O2SAT 96
[2024-10-17] MEDS ORDERED: MEASLES, MUMPS & RUBELLA VAC(MMRII) 0.5ML SC ONE (07:00)
--- NOTE | 2024-10-17 07:53 | DVHPN2 ---
Chief Complaints Patient reports: No new complaints Nursing reports: No new complaints Objective Vitals Vital Signs Date Time Temp Pulse Resp B/P (MAP) Pulse Ox O2 Delivery O2 Flow Rate FiO2 10/17/24 07:15 Room Air 0.0 10/17/24 03:30 98.7 88 16 105/73 (84) 96 98.7 Medications Current Medications Medications (Trade) Dose Ordered Sig/Amparo Route PRN Reason Start Time Stop Time Status Last Admin Docusate Sodium (Colace Capsule) 200 mg HS PO 10/16/24 22:00 General: Normal Neck: No thyromegaly Cardiovascular: Normal Abdominal: Soft Extremities: Normal Studies Laboratory Tests 10/14/24 22:30 Test 10/14/24 22:30 Range/Units Serum Glucose 89 74-106 mg/dL Ass/Plan Assessment s/p Plan dc home fu in 2wks Visit Coding OBGYN Date of Service: Oct 17, 2024 Billing Provider: LUIS MERCHANT DO QUARRY EQUIPMENT OPERATOR Common Visit Codes: [id number] INP/OBS CARE(HIGH), [id number]-LUL/OBS DISCH DAY >30MIN LUIS MERCHANT DO Oct 17, 2024 07:53
--- NOTE | 2024-10-17 07:54 | DVHDS2 ---
Obstetrics Discharge Summary Obstetrics Discharge Summary Date of Admission: Oct 14, 2024 Date of Discharge: Oct 17, 2024 Reason For Admission: Induction of Labor, PROM Intrapartum Procedures: Spontaneous vaginal deliv Procedures: None Operative Complicat: None Discharge Diagnosis: Term -Delivered Discharge Information: Activity (Other), Diet (Routine), Medications (None), Instructions (Routine), Discharge to (Other), Discarge date (-4) Visit Coding OBGYN Date of Service: Oct 17, 2024 Billing Provider: LUIS MERCHANT DO FIELD SALES MANAGER Common Visit Codes: [id number] INP/OBS CARE(HIGH), 23963-FXR/OBS DISCH DAY <30MIN, 69209-CKT/OBS DISCH DAY >30MIN LUIS MERCHANT DO Oct 17, 2024 07:54
== END 2024-10-17 10:40 | disposition home or self-care (01) | DRG 560 ==
LOC: LDRP 21:49
PROVIDERS: ADMIT Obstetrics & Gynecology; ATTEND Obstetrics & Gynecology
PROC: 10E0XZZ Delivery of Products of Conception, External Approach (ICD-10-PCS; principal; 2024-10-16)
PROC: 3E0R3BZ Introduction of Anesthetic Agent into Spinal Canal, Percutaneous Approach (ICD-10-PCS; 2024-10-16)
PROC: 00HU33Z Insertion of Infusion Device into Spinal Canal, Percutaneous Approach (ICD-10-PCS; 2024-10-16)
DX: O41.03X0 Oligohydramnios, third trimester, not applicable or unspecified (principal); Z37.0 Single live birth; O42.92 Full-term premature rupture of membranes, unspecified as to length of time between rupture and onset of labor; O71.82 Other specified trauma to perineum and vulva; Z3A.39 39 weeks gestation of pregnancy; Z88.0 Allergy status to penicillin
CPT/HCPCS: 36415; 59200; 59409; 62282; 80053; 80307; 81001; 85025; 85610; 85730; 86762; 86780; 86803; 86850; 86870; 86900; 86901; 94760; 94762; 96360; 96361; 96365; 96366; 96374; 96375; G0378; J2590